=== PATIENT | female | born 1960 | race Caucasian/White ===

== ENCOUNTER 2019-03-28 15:17 | Outpatient (CLI) | payer OTHER, SELFPAY ==
--- NOTE | 2019-03-28 | US_ITS ---
WS: [id number] Left Lower extremity venous Doppler, 03/28/2019 Clinical Data: LEFT LEG PAIN Comparison: None. Findings: The veins of the left lower extremity were examined. The veins examined where the posterior tibial vein, popliteal vein, superficial femoral vein, common femoral vein and greater saphenous vein. There was normal venous flow throughout. There is no evidence of deep venous thrombosis or obstructio n. Normal augmentation and compression occurred. US/ROR Venous duplex LE Impression: Negative left lower extremity venous Doppler ultrasound.
== END 2019-03-28 15:18 | disposition home or self-care (01) ==
LOC: RADOUTREAD 03-29 10:07
PROVIDERS: Family Provider Family Medicine; Visit Provider Family Medicine
DX: M79.605 Pain in left leg (principal)

== ENCOUNTER 2019-05-09 07:40 | Outpatient (CLI) | payer OTHER, SELFPAY ==
--- NOTE | 2019-05-09 07:46 | MM_ITS ---
WS: [id number] BILATERAL DIGITAL SCREENING MAMMOGRAPHY WITH CAD CLINICAL INFORMATION: SCREENING HISTORY: Screening mammogram. No current complaints. COMPARISON: TECHNIQUE: Bilateral CC and MLO views. FINDINGS: The breasts are composed of heterogeneous fibroglandular density tissue, which can limit the detectio n of small underlying mass lesions. No suspicious mass, asymmetry, calcifications, or architectural d istortion. No evidence of malignancy. MM/[id number] IMPRESSION: BI-RADS: 2-Benign FOLLOW UP: 1 Year Follow-up Recommend return to annual screening mammography.
== END 2019-05-09 07:41 | disposition home or self-care (01) ==
LOC: RADSHAW 07:44
PROVIDERS: Family Provider Family Medicine; PCP Family Medicine; Visit Provider Family Medicine
DX: Z12.31 Encounter for screening mammogram for malignant neoplasm of breast (principal)
CPT/HCPCS: 77067

== ENCOUNTER 2020-05-16 07:50 | Outpatient (CLI) | payer OTHER, SELFPAY ==
--- NOTE | 2020-05-16 07:54 | MM_ITS ---
WS: [id number] BILATERAL SCREENING DIGITAL MAMMOGRAM WITH CAD HISTORY: SCREENING COMPARISON: 05/09/2019, 05/10/2018 Bilateral CC and MLO views submitted. Computer aided detection analyzed. Breast composition: The breasts are extremely dense, which lowers the sensitivity of mammography. No suspicious masses, microcalcifications or architectural distortion. MM/[id number] IMPRESSION: BI-RADS: 1-Negative FOLLOW UP: 1 Year Follow-up
== END 2020-05-16 07:51 | disposition home or self-care (01) ==
LOC: RADSHAW 07:53
PROVIDERS: PCP Family Medicine; Visit Provider Family Medicine
DX: Z12.31 Encounter for screening mammogram for malignant neoplasm of breast (principal)
CPT/HCPCS: 77067

== ENCOUNTER 2021-05-15 08:29 | Outpatient (CLI) | payer OTHER, SELFPAY ==
--- NOTE | 2021-05-15 08:44 | MM_ITS ---
WS: [id number] BILATERAL SCREENING DIGITAL MAMMOGRAM WITH CAD HISTORY: SCREENING COMPARISON: 05/16/2020, 05/09/2019 and 05/10/2018 Bilateral CC and MLO views submitted. Computer aided detection analyzed. Breast composition: The breasts are heterogeneously dense, which may obscure small masses. No suspici ous masses, microcalcifications or architectural distortion. Asymmetries are stable over multiple nino or examinations. No distortion. MM/[id number] IMPRESSION: BI-RADS: 2-Benign FOLLOW UP: 1 Year Follow-up
== END 2021-05-15 08:30 | disposition home or self-care (01) ==
PROVIDERS: PCP Family Medicine; Visit Provider Family Medicine
DX: Z12.31 Encounter for screening mammogram for malignant neoplasm of breast (principal)
CPT/HCPCS: 77067